=== PATIENT | female | born 1960 | race Caucasian/White ===

== ENCOUNTER 2021-08-16 09:35 | Emergency (ER) | payer MEDICAID ==
[~2021-08-16] VITALS: Ht 154.9 cm; Wt 74.8 kg
[2021-08-16 09:46] VITALS: BP 164/98
[2021-08-16] MEDS ORDERED: KETOROLAC TROMETHAMINE INJ 30 MG/ML VIAL IM ONE (10:00)
[2021-08-16] MEDS ORDERED: TRAMADOL HCL 50 MG TABLET PO ONE (10:00)
[2021-08-16] MEDS ORDERED: CYCLOBENZAPRINE 10 MG TABLET PO ONE (10:00)
[2021-08-16] MEDS ORDERED: CYCLOBENZAPRINE 10 MG TABLET ONE (10:13)
[2021-08-16] MEDS ORDERED: TRAMADOL HCL 50 MG TABLET ONE (10:13)
[2021-08-16] MEDS ORDERED: KETOROLAC TROMETHAMINE INJ 30 MG/ML VIAL ONE (10:13)
[2021-08-16] MEDS ORDERED: TRAM50TA2 PO (11:16)
[2021-08-16] MEDS ORDERED: CYCL5TAB PO (11:16)
== END 2021-08-16 11:29 | disposition home or self-care (01) ==
LOC: ER 09:41
DX: G89.29 Other chronic pain (principal); M54.42 Lumbago with sciatica, left side; Z60.2 Problems related to living alone; Z79.899 Other long term (current) drug therapy
CPT/HCPCS: 96372; 99283; J1885

== ENCOUNTER 2021-08-21 10:13 | Emergency (ER) | payer MEDICAID ==
[~2021-08-21] VITALS: Ht 154.9 cm; Wt 74.8 kg
[~2021-08-21 10:13] MED LIST: CYCL5TAB PO; TRAM50TA2 PO
[2021-08-21 10:21] VITALS: BP 159/68
[2021-08-21] MEDS ORDERED: HYDR-4209 PO (10:54)
[2021-08-21] MEDS: KETOROLAC TROMETHAMINE INJ 60 MG/2 ML VIAL IM ONE (11:04)
--- NOTE | 2021-08-21 11:06 | NUR ---
Patient discharged to home in stable condition. Written and verbal after care instructions given. Patient verbalizes understanding of instruction.
== END 2021-08-21 11:09 | disposition home or self-care (01) ==
LOC: ER 10:21
DX: M54.42 Lumbago with sciatica, left side (principal); G89.29 Other chronic pain; Z60.2 Problems related to living alone

== ENCOUNTER 2021-10-02 11:43 | Emergency (ER) | payer MEDICAID ==
[~2021-10-02] VITALS: Ht 154.9 cm; Wt 73.0 kg
[~2021-10-02 11:43] MED LIST changes: +HYDR-4209 PO
--- NOTE | 2021-10-02 11:53 | NUR ---
TO ER BED 1, BIB SELF C/O LOWER BACK PAIN X 3 DAYS, HX OF BACK PROBLEM L4, AAOX3, BREATHING EVEN AND NON LABORED, BREATHING EVEN AND NON LABORED, AWAITING MD SONG
[2021-10-02] MEDS ORDERED: HYDROCODONE/APAP 5/325MG TABLET ONE (12:53)
[2021-10-02] MEDS ORDERED: predniSONE 20 MG TABLET ONE (12:54)
[2021-10-02] MEDS ORDERED: predniSONE 20 MG TABLET PO ONE (13:00)
[2021-10-02] MEDS ORDERED: HYDROCODONE/APAP 5/325MG TABLET PO ONE (13:00)
[2021-10-02] MEDS ORDERED: PRED20TA PO (14:23)
[2021-10-02] MEDS ORDERED: ONDA4TAB5 PO (14:23)
[2021-10-02] MEDS ORDERED: LIDO30AD10 TP (14:24)
[2021-10-02 14:33] VITALS: BP 138/80
--- NOTE | 2021-10-02 14:33 | NUR ---
Patient discharged to home in stable condition. Written and verbal after care instructions given. Patient verbalizes understanding of instruction.
[2021-10-03] MEDS ORDERED: PRED20TA PO (23:40)
[2021-10-03] MEDS ORDERED: OXYC-128 PO (23:40)
== END 2021-10-02 14:34 | disposition home or self-care (01) ==
LOC: ER 11:45
DX: G89.29 Other chronic pain (principal); M54.42 Lumbago with sciatica, left side; Z79.52 Long term (current) use of systemic steroids; Z79.891 Long term (current) use of opiate analgesic; Z79.899 Other long term (current) drug therapy; Z60.2 Problems related to living alone
CPT/HCPCS: 99283; J7512

== ENCOUNTER 2021-10-03 22:34 | Emergency (ER) | payer MEDICAID ==
[~2021-10-03] VITALS: Ht 154.9 cm; Wt 74.8 kg
[~2021-10-03 22:34] MED LIST changes: +LIDO30AD10 TP; +ONDA4TAB5 PO; +PRED20TA PO
[2021-10-03 22:58] VITALS: BP 157/99
[2021-10-03] MEDS ORDERED: HYDROMORPHONE HCL 2 MG TABLET ONE (23:38)
[2021-10-03] MEDS ORDERED: ONDANSETRON 4 MG TAB.RAPDIS ONE (23:38)
[2021-10-03] MEDS ORDERED: PRED20TA PO (23:40)
[2021-10-03] MEDS ORDERED: OXYC-128 PO (23:40)
[2021-10-03] MEDS ORDERED: predniSONE 20 MG TABLET ONE (23:45)
--- NOTE | 2021-10-03 23:50 | NUR ---
Patient discharged to home in stable condition. Written and verbal after care instructions given. Patient verbalizes understanding of instruction.
[2021-10-04] MEDS ORDERED: ONDANSETRON 4 MG TAB.RAPDIS SL ONE
[2021-10-04] MEDS ORDERED: HYDROMORPHONE HCL 2 MG TABLET PO PRN
[2021-10-04] MEDS ORDERED: predniSONE 50 MG TABLET PO ONE
== END 2021-10-03 23:52 | disposition home or self-care (01) ==
LOC: ER 22:36
DX: G89.29 Other chronic pain (principal); M54.42 Lumbago with sciatica, left side; Z79.52 Long term (current) use of systemic steroids; Z79.891 Long term (current) use of opiate analgesic; Z79.899 Other long term (current) drug therapy
CPT/HCPCS: 99284; J7512; Q0162

== ENCOUNTER 2021-10-14 12:59 | Emergency (ER) | payer MEDICAID ==
[~2021-10-14] VITALS: Ht 154.9 cm; Wt 77.1 kg
[~2021-10-14 12:59] MED LIST changes: +OXYC-128 PO
[2021-10-14 13:53] VITALS: BP 156/95
--- NOTE | 2021-10-14 13:53 | NUR ---
SENT TO ER BED 10. CHRONIC LOWER BACK PAIN R/T LLE. WORST X 2 DAYS WHILE PACKING CLOTHES. DENIES ANY RECENT INJURY. TRAMADOL NOT HELPING. WARM BLANKE PROVIDED FOR COMFORT. AWAITING MD SONG.
--- NOTE | 2021-10-14 14:47 | NUR ---
DR SCHULTZ AT BEDSIDE
[2021-10-14] MEDS ORDERED: IBUPROFEN 600 MG TABLET PO ONE (15:00)
[2021-10-14] MEDS ORDERED: DEXAMETHASONE SOD PHOSPHATE 10 MG/ML VIAL IM ONE (15:00)
[2021-10-14] MEDS ORDERED: ACETAMINOPHEN ES 500 MG TABLET PO ONE (15:00)
[2021-10-14] MEDS ORDERED: ACETAMINOPHEN ES 500 MG TABLET ONE (15:01)
[2021-10-14] MEDS ORDERED: DEXAMETHASONE SOD PHOSPHATE 10 MG/ML VIAL ONE (15:01)
[2021-10-14] MEDS ORDERED: IBUPROFEN 600 MG TABLET ONE (15:02)
--- NOTE | 2021-10-14 16:11 | NUR ---
PT ELOPED AFTER RECIEVING MEDICATION, AWARE. PT LAST SEEN AT 1550.
== END 2021-10-14 16:30 | disposition left against medical advice (07) ==
LOC: ER 13:03
DX: M54.50 Low back pain, unspecified (principal); G89.29 Other chronic pain; Z98.890 Other specified postprocedural states; Z79.899 Other long term (current) drug therapy
CPT/HCPCS: 96372; 99283; J1100

== ENCOUNTER 2021-11-01 18:53 | Emergency (ER) | payer MEDICAID ==
[~2021-11-01] VITALS: Ht 154.9 cm; Wt 77.1 kg
--- NOTE | 2021-11-01 19:05 | NUR ---
PT BIBS C/O CHRONIC BACK PAIN. ALERT AND ORIENTED X3./ AMBULATORY WITH NON LABORED BREATHING IN BED 09 ON MONITOR.
[2021-11-01] MEDS ORDERED: ONDANSETRON 4 MG TAB.RAPDIS PO ONE (20:30)
[2021-11-01] MEDS ORDERED: TRAMADOL HCL 50 MG TABLET PO ONE (20:30)
[2021-11-01] MEDS ORDERED: KETOROLAC TROMETHAMINE INJ 60 MG/2 ML VIAL IM ONE (20:30)
[2021-11-01] MEDS ORDERED: KETOROLAC TROMETHAMINE INJ 30 MG/ML VIAL ONE (20:34)
[2021-11-01] MEDS ORDERED: TRAMADOL HCL 50 MG TABLET ONE (20:34)
[2021-11-01] MEDS ORDERED: ONDANSETRON 4 MG TAB.RAPDIS ONE (20:34)
--- NOTE | 2021-11-01 20:39 | NUR ---
PATIENT MEDICATED AND LAYING COMFORTABLY IN BED. NO COMPLAINTS AT THIS TIME.
[2021-11-01] MEDS ORDERED: TRAM50TA2 PO (21:14)
--- NOTE | 2021-11-01 21:21 | NUR ---
Patient discharged to home in stable condition. Written and verbal after care instructions given. Patient verbalizes understanding of instruction.
[2021-11-01 21:22] VITALS: BP 121/77
== END 2021-11-01 21:22 | disposition home or self-care (01) ==
LOC: ER 18:54
DX: G89.29 Other chronic pain (principal); M54.42 Lumbago with sciatica, left side; Z98.890 Other specified postprocedural states; Z79.52 Long term (current) use of systemic steroids; Z79.891 Long term (current) use of opiate analgesic; Z79.899 Other long term (current) drug therapy
CPT/HCPCS: 96372; 99283; J1885; Q0162

== ENCOUNTER 2021-11-12 08:06 | Emergency (ER) | payer MEDICAID ==
--- NOTE | 2021-11-12 08:55 | NUR ---
c/o lower back pain 8 on scale 0 - 10 , took a tramadol before coming to ER did not help, chronic back pain for 1 year, worse today then ever, no nausea, no vomiting, no SOB noted, no chest pain noted, history of HTN, high cholesterol, 2020 had back surgery and a lubectomy, current meds at home are arvistatan and llipitor. does not smoke, drinks during football games, and no drugs.
[2021-11-12] MEDS ORDERED: MORPHINE SULFATE INJ 2 MG/ML DISP.SYRIN IM ONE (09:00)
[2021-11-12] MEDS ORDERED: MORPHINE SULFATE INJ 2 MG/ML DISP.SYRIN ONE (10:32)
[2021-11-12 12:16] VITALS: BP 132/78
== END 2021-11-12 12:32 | disposition home or self-care (01) ==
LOC: ER 08:19
DX: G89.29 Other chronic pain (principal); M54.42 Lumbago with sciatica, left side; Z79.52 Long term (current) use of systemic steroids; Z79.891 Long term (current) use of opiate analgesic; Z79.899 Other long term (current) drug therapy
CPT/HCPCS: 96372; 99283; J2270

== ENCOUNTER 2021-11-18 19:51 | Emergency (ER) | payer MEDICAID ==
[~2021-11-18] VITALS: Ht 154.9 cm; Wt 79.4 kg
--- NOTE | 2021-11-18 20:26 | NUR ---
TO BED 1. BIBS C/O L BACK PAIN , BURNING 8/10 ON P/S. NOT RELIEVED BY MEDS. WORSE WHEN MOVING. DENIES ANY CHEST PAIN. NOT IN RESP DISTRESS. CONNECTED TO MONITOR. AWAITNG MD SONG
[2021-11-18] MEDS ORDERED: KETOROLAC TROMETHAMINE INJ 30 MG/ML VIAL ONE (20:50)
[2021-11-18] MEDS ORDERED: KETOROLAC TROMETHAMINE INJ 60 MG/2 ML VIAL IM ONE (21:00)
[2021-11-18 21:07] VITALS: BP 146/76
--- NOTE | 2021-11-18 21:07 | NUR ---
Patient discharged to home in stable condition. Written and verbal after care instructions given. Patient verbalizes understanding of instruction. Patient ambulatory with a steady gait
== END 2021-11-18 21:08 | disposition home or self-care (01) ==
LOC: ER 19:55
DX: M54.42 Lumbago with sciatica, left side (principal); G89.29 Other chronic pain; Z79.52 Long term (current) use of systemic steroids; Z79.891 Long term (current) use of opiate analgesic; Z79.899 Other long term (current) drug therapy
CPT/HCPCS: 96372; 99283; J1885

== ENCOUNTER 2021-12-19 07:31 | Emergency (ER) | payer MEDICAID ==
[~2021-12-19] VITALS: Ht 154.9 cm; Wt 77.1 kg
--- NOTE | 2021-12-19 07:31 | NUR ---
TO ER BED 1. BIBS C/O LOWER BACK PAIN THAT RADIATES TO L LEG, PT STATED AN 8/10 PAIN ON PS. PT HAS HISTORY OF BACK PAIN AND HAD BACK SURGERY IN 2019 PAIN REOCCURED THIS SUNDAY, ALREADY SAW HER PRIMARY AND GOT AN MRI. PT STATED SHE JUST WANTS MEDICAITON TO HELP ALIEVIATE THE PAIN UNTIL SHE SEES HER PRIMARY THIS SUNDAY.
--- NOTE | 2021-12-19 07:38 | NUR ---
DR WEBB AT BEDSIDE FOR EVAL.
[2021-12-19] MEDS ORDERED: CARI350T PO (07:51)
[2021-12-19] MEDS ORDERED: TRAM50TA2 PO (07:51)
--- NOTE | 2021-12-19 07:58 | NUR ---
Patient discharged to home in stable condition. Written and verbal after care instructions given. Patient verbalizes understanding of instruction.
[2021-12-19 07:59] VITALS: BP 145/83
== END 2021-12-19 07:59 | disposition home or self-care (01) ==
LOC: ER 07:35
DX: G89.29 Other chronic pain (principal); M54.50 Low back pain, unspecified; Z79.899 Other long term (current) drug therapy